=== PATIENT | female | born 1990 | race Two or more races ===

== ENCOUNTER 2023-04-22 15:56 | Emergency (ER) | payer BC ==
[~2023-04-22] VITALS: Ht 160 cm; Wt 108.9 kg
[2023-04-22] MEDS ORDERED: DESOXYN5 MG PO (16:01)
[2023-04-22] MEDS ORDERED: PRENA1 TRUE CO1 EACH PO (16:01)
[2023-04-22] MEDS ORDERED: APTENSIO XR40 MG PO (18:10)
[2023-04-22] MEDS ORDERED: KETOROLAC TROMETHAMINE 60 MG VIAL IM ONE (18:30)
[2023-04-22] MEDS ORDERED: DICLOFENAC SODI75 MG PO (21:13)
== END 2023-04-22 22:34 ==
LOC: ER 15:56
DX: S60.011A Contusion of right thumb without damage to nail, initial encounter (principal); W22.8XXA Striking against or struck by other objects, initial encounter; Y93.89 Activity, other specified; Y92.828 Other wilderness area as the place of occurrence of the external cause; Z88.0 Allergy status to penicillin; F90.8 Attention-deficit hyperactivity disorder, other type